=== PATIENT | male | born 1970 | race African-American/Black ===

== ENCOUNTER 2017-09-26 11:10 | Emergency (ER) | payer SELFPAY | END 2017-09-26 13:53 | disposition home or self-care (01) | LOC: ERS 11:10 | DX: M79.642 Pain in left hand (principal); M79.641 Pain in right hand; J45.909 Unspecified asthma, uncomplicated; Z87.891 Personal history of nicotine dependence | CPT/HCPCS: 99283 ==

== ENCOUNTER 2017-12-20 11:26 | Emergency (ER) | payer SELFPAY ==
--- NOTE | 2017-12-20 12:27 | RAD ---
RADIOGRAPH RIGHT SHOULDER 3 VIEWS: Date: 12/20/17 Time: 1148 hours HISTORY: 47-year-old male with right shoulder pain, but no trauma. COMPARISON: 04/06/15. FINDINGS: Again demonstrated is irregularity and mild bony hypertrophy of the AC joint. Lucency at the distal t ip of the clavicle appears somewhat greater on the current study compared to prior, but that could be due to technical differences rather than representing erosions. There is no acute fracture. There ar e multiple small subchondral cysts, and mild bony hypertrophy, at the inferior aspect of the glenohum eral joint. No destructive osseous lesion identified. IMPRESSION: mild to moderate osteoarthrosis of the glenohumeral joint, and moderate arthrosis of the acromioclavi cular joint. POS: [facility]
[2017-12-20] MEDS ORDERED: Sterile Water 10 ML ONE (12:31)
[2017-12-20] MEDS ORDERED: methylPREDNISolone Sod Succ/PF 125 MG/2 ML VIAL ONE (12:31)
== END 2017-12-20 12:59 | disposition home or self-care (01) ==
LOC: ERS 11:26
DX: M25.511 Pain in right shoulder (principal); J45.909 Unspecified asthma, uncomplicated; Z87.891 Personal history of nicotine dependence
CPT/HCPCS: 96372; A4216; J2930

== ENCOUNTER 2018-01-15 08:18 | Emergency (ER) | payer SELFPAY ==
--- NOTE | 2018-01-15 09:17 | RAD ---
LEFT ANKLE THREE VIEWS: History: Left ankle pain. FINDINGS: There is 0.3 cm distraction and minimal lateral displacement of the distal fragment of a transverse m edial malleolar fragment that shows well corticated margins. Tiny adjacent ossific fragment lies imme diately lateral to the main fracture plane. Moderate osteophytosis and mild joint space narrowing. Ta lar dome is intact. Small area of dystrophic calcification over the distal Achilles tendon. IMPRESSION: 1. 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 2. Osteoarthritic changes, somewhat pronounced for the patient's age. POS: [facility]
--- NOTE | 2018-01-15 09:20 | RAD ---
FIVE VIEWS LEFT KNEE: Date: 01-15-18 History: Twisting injury to left knee while playing sports one day ago. Left knee pain. FINDINGS: There is mild tricompartment osteophytosis. No fracture or dislocation is seen. No significant joint space narrowing is present. There is evidence of a small joint effusion in the suprapatellar location . No other findings. IMPRESSION: Osteoarthritis involving the patellofemoral joint. There is a lucency within the inferior aspect of t he femoral condyles on the lateral projection which may be related to subchondral cystic change. Oste ochondral defect cannot be entirely excluded. There is also evidence of a joint effusion. MRI left kn ee is suggested for further evaluation. POS: [facility]
[2018-01-15] MEDS ORDERED: Ketorolac Tromethamine 60 MG/2 ML VIAL ONE (09:48)
[2018-01-15] MEDS ORDERED: Acetaminophen/Codeine 30-300mg Tablet ONE (09:48)
== END 2018-01-15 10:08 | disposition home or self-care (01) ==
LOC: ERS 08:18
DX: M25.562 Pain in left knee (principal); M25.572 Pain in left ankle and joints of left foot; J45.909 Unspecified asthma, uncomplicated; Z87.891 Personal history of nicotine dependence
CPT/HCPCS: 96372; J1885

== ENCOUNTER 2018-02-22 14:25 | Emergency (ER) | payer SELFPAY ==
[2018-02-22] MEDS ORDERED: Dexamethasone 10 MG/ML VIAL ONE (14:47)
== END 2018-02-22 14:54 | disposition home or self-care (01) ==
LOC: ERS 14:25
DX: R21 Rash and other nonspecific skin eruption (principal); T39.315A Adverse effect of propionic acid derivatives, initial encounter; M25.562 Pain in left knee; J45.909 Unspecified asthma, uncomplicated; Z87.891 Personal history of nicotine dependence
CPT/HCPCS: 99282; J1100

== ENCOUNTER 2018-03-20 12:45 | Emergency (ER) | payer SELFPAY ==
[2018-03-20] MEDS ORDERED: Acetaminophen/Codeine 30-300mg Tablet ONE (13:20)
--- NOTE | 2018-03-20 13:57 | RAD ---
RIGHT SHOULDER THREE VIEWS: HISTORY: A 47-year-old male with a history of right shoulder pain. FINDINGS: There is some AC joint arthrosis with some minimal erosive or subchondral cystic changes of the later al clavicle. Mild degenerative changes of the glenohumeral joint. No acute fracture or dislocation. IMPRESSION: Stable arthrosis changes of the acromioclavicular joint and glenohumeral joint, unchanged from prior 12/20/2017 study. POS: J[facility]
== END 2018-03-20 14:01 | disposition home or self-care (01) ==
LOC: ERS 12:45
DX: M25.511 Pain in right shoulder (principal); J45.909 Unspecified asthma, uncomplicated; Z87.891 Personal history of nicotine dependence

== ENCOUNTER 2018-05-09 17:14 | Emergency (ER) | payer SELFPAY ==
[2018-05-09] MEDS ORDERED: Sodium Chloride 0.9% 100 ML ONE (18:11)
[2018-05-09] MEDS ORDERED: cefTRIAXone\\ROCEPHIN 1 GM VIAL ONE (18:11)
--- NOTE | 2018-05-09 18:19 | RAD ---
CHEST ONE VIEW: 05/09/18 HISTORY: Fever. COMPARISON: Chest radiograph 2009. FINDINGS: Lungs are clear. No pneumothorax or effusion. Cardiac silhouette and mediastinal contours are similar . Mild prominence of the pulmonary arteries. IMPRESSION: Similar examination chest. No acute intrathoracic abnormality. POS: [facility]
[2018-05-09 18:21] LABS: #Basophils 0.1 thou/uL (0.0-0.2); #Eosinphils 0.2 thou/uL (0.0-0.7); #Monocytes 0.9 thou/uL (0.11-0.59); #Neutrophils 4.7 thou/uL (1.40-6.50); %Basophils 0.7 % (0.0-1.0); %Eosinophils 3.1 % (0.0-10.0); %Lymphocytes 25.9 % (21.0-51.0); %Monocytes 10.9 % (0.0-10.0); %Neutrophils 59.5 % (42.0-75.0); Hemoglobin 12.5 g/dL (14.0-18.0); Mean Corpuscular HGB CONC 33.7 g/dL (32.0-36.0); Mean Corpuscular Hemoglobin 29.2 pg (27.0-31.0); Mean Corpuscular Volume 86.5 fL (78.0-98.0); Mean Platelet Volume 7.2 fL (7.4-10.4); Platelet Count 262 thou/uL (130-400); Red Blood Cell (RBC) Count 4.29 mill/uL (4.70-6.10); White Blood Cell (WBC) Count 7.9 thou/uL (4.8-10.8)
[2018-05-09] MEDS ORDERED: Acetaminophen 500 MG TAB ONE (18:25)
[2018-05-09 18:39] LABS: Anion Gap 11 mmol/L (10-20); BUN (Urea Nitrogen) 16 mg/dL (8.9-20.6); Calc. Creatinine Clearance 0 mL/min (70-130); Calcium 9.2 mg/dL (7.8-10.44); Carbon Dioxide 28 mmol/L (22-29); Chloride 106 mmol/L (98-107); Estimated GFR-MDRD 69; Glucose 114 mg/dL (70-105); Potassium 3.8 mmol/L (3.5-5.1); Sodium 141 mmol/L (136-145)
== END 2018-05-09 20:25 | disposition home or self-care (01) ==
LOC: ERS 17:14
DX: J02.9 Acute pharyngitis, unspecified (principal); J45.909 Unspecified asthma, uncomplicated; Z87.891 Personal history of nicotine dependence
CPT/HCPCS: 36415; 71045; 80048; 83605; 85025; 87040; 87081; 87430; 87804; 93005; 96365; 96366; J0696; J7050

== ENCOUNTER 2018-08-25 08:53 | Emergency (ER) | payer SELFPAY | END 2018-08-25 09:50 | disposition home or self-care (01) | LOC: ERS 08:53 | DX: M25.511 Pain in right shoulder (principal); G89.29 Other chronic pain; J45.909 Unspecified asthma, uncomplicated; Z87.891 Personal history of nicotine dependence | CPT/HCPCS: 99283 ==

== ENCOUNTER 2018-11-17 09:13 | Emergency (ER) | payer SELFPAY ==
[2018-11-17 10:33] LABS: #Basophils 0.1 thou/uL (0.0-0.2); #Eosinphils 0.3 thou/uL (0.0-0.7); #Lymphocytes 2.5 thou/uL (1.20-3.40); #Monocytes 0.6 thou/uL (0.11-0.59); #Neutrophils 2.6 thou/uL (1.40-6.50); %Basophils 1.2 % (0.0-1.0); %Eosinophils 5.4 % (0.0-10.0); %Monocytes 9.9 % (0.0-10.0); %Neutrophils 42.5 % (42.0-75.0); Hemoglobin 13.1 g/dL (14.0-18.0); Mean Corpuscular HGB CONC 32.5 g/dL (32.0-36.0); Mean Corpuscular Hemoglobin 27.9 pg (27.0-31.0); Mean Corpuscular Volume 85.9 fL (78.0-98.0); Mean Platelet Volume 6.9 fL (7.4-10.4); Platelet Count 295 thou/uL (130-400); RBC Distribution Width 13.2 % (11.5-14.5); White Blood Cell (WBC) Count 6.2 thou/uL (4.8-10.8)
[2018-11-17] MEDS ORDERED: HYDROcodone/Acetaminophen 5/325 mg Tablet ONE (10:42)
[2018-11-17 11:00] LABS: ALT (SGPT) 134 U/L (8-55); AST (SGOT) 71 U/L (5-34); Albumin 3.9 g/dL (3.5-5.0); Alkaline Phosphatase 103 U/L (40-150); Anion Gap 11 mmol/L (10-20); BUN (Urea Nitrogen) 16 mg/dL (8.9-20.6); Bilirubin, Total 1.1 mg/dL (0.2-1.2); Calc. Creatinine Clearance 0 mL/min (70-130); Calcium 9.4 mg/dL (7.8-10.44); Carbon Dioxide 29 mmol/L (22-29); Chloride 102 mmol/L (98-107); Estimated GFR-MDRD 84; Globulin 3.6 g/dL (2.4-3.5); Glucose 108 mg/dL (70-105); Potassium 3.8 mmol/L (3.5-5.1); Protein, Total 7.5 g/dL (6.0-8.3); Sodium 138 mmol/L (136-145)
[2018-11-17 11:12] LABS: Bilirubin Negative (Negative); Blood, Urine Large (Negative); Clarity CLEAR (Clear); Glucose, Urine (Dipstick) Negative (Negative); Leukocyte Negative (Negative); Nitrite Negative (Negative); Protein, Urine (Dipstick) Negative (Neg-Trace); Specific Gravity, Urine 1.023 (1.002-1.036); Urobilinogen 0.2 mg/dL (0.2-1.0)
[2018-11-17 11:15] LABS: Bacteria/HPF None Seen HPF (None Seen); Hyaline Casts/LPF 0-3 HYALINE CAST LPF (0-3 Hyaline); Squamous Epithelial None Seen HPF (0-3); WBC/HPF 0-3 HPF (0-3)
--- NOTE | 2018-11-17 11:59 | CT ---
HEAD CT IWTHOUT CONTRAST: DATE: 11/17/2018. COMPARISON: None. HISTORY: Headache, dizziness, weakness, and nausea. TECHNIQUE: Axial CT imaging at 5 mm intervals from vertex through the skull base without contrast. FINDINGS: The imaged paranasal sinuses and mastoid air cells are well aerated. No displaced calvarial fracture . No intracranial hemorrhage, midline shift, mass effect, or ventricular enlargement. IMPRESSION: No acute findings. POS: [facility]
== END 2018-11-17 11:58 | disposition home or self-care (01) ==
LOC: ERS 09:13
DX: R51 Headache (principal); M79.10 Myalgia, unspecified site; I10 Essential (primary) hypertension; J45.909 Unspecified asthma, uncomplicated; Z87.891 Personal history of nicotine dependence
CPT/HCPCS: 36415; 70450; 80053; 81003; 81015; 83880; 84484; 85025; 93005

== ENCOUNTER 2019-01-26 14:56 | Outpatient (CLI) | payer OTHER ==
--- NOTE | 2019-01-26 16:32 | MRI ---
MR OF THE LEFT KNEE WITHOUT CONTRAST INDICATION: Suspected medial meniscal tear and anterior left knee pain TECHNIQUE: Axial and coronal PD fat sat, sagittal T2 fat sat, sagittal PD turbo spin echo and T1 gricel nal images were obtained of the left knee. COMPARISON: Left knee radiograph dated January 15, 2018 FINDINGS: Joint effusion: Small Semimembranosus-medial gastrocnemius popliteal cyst: Small Ligaments: The ACL, PCL, MCL and LCLC are intact. Extensor mechanism: Intact. Menisci: There is a horizontally oriented oblique tear involving the posterior horn and posterior aurelia t of the medial meniscus. There is partial medial extrusion of the medial meniscus. The lateral meniscus appears intact. Articular cartilage: There is moderate chondrosis involving the medial femoral tibial joint compartme nt. There is moderate to severe chondrosis involving the patellofemoral compartment with a large area of full-thickness thinning involving the lateral patellar facet and lateral femoral trochlea. Th ere are marginal osteophytes affecting the major compartments of the left knee. There is mild diffuse chondrosis involving the lateral femoral tibial compartment. Focal full-thickness articular c artilage fissuring is suspected involving the medial aspect of the posterior lateral tibial plateau on image 22 of series 7. Osseous structures: Mild reactive edema is seen underlying areas of cartilage defects involving the l ateral patella, lateral femoral trochlea and lateral tibial plateau. Popliteus and IT band: Normal. IMPRESSION: 1. Mild to moderate osteoarthrosis involving the left knee, most severely affecting the patellofemora l compartment. 2. Medial meniscal tear
== END 2019-01-26 14:57 | disposition home or self-care (01) ==
LOC: BICMRI 14:56
PROVIDERS: ATTEND Orthopaedic Surgery
DX: M76.52 Patellar tendinitis, left knee (principal); S83.242A Other tear of medial meniscus, current injury, left knee, initial encounter; M17.12 Unilateral primary osteoarthritis, left knee

== ENCOUNTER 2024-08-11 07:06 | Emergency (ER) | payer OTHER, SELFPAY ==
[2024-08-11] MEDS ORDERED: Ketorolac Tromethamine 30 MG (1 mL) VIAL ONE (07:59)
== END 2024-08-11 08:57 | disposition home or self-care (01) ==
LOC: ERS 07:06
DX: M54.50 Low back pain, unspecified (principal); I10 Essential (primary) hypertension; F17.210 Nicotine dependence, cigarettes, uncomplicated
CPT/HCPCS: 72072; 72100; 96372; 99283; J1885

== ENCOUNTER 2025-08-04 09:21 | Emergency (ER) | payer SELFPAY | END 2025-08-04 09:55 | disposition home or self-care (01) | LOC: ERS 09:21 | DX: B35.3 Tinea pedis (principal); I10 Essential (primary) hypertension; F17.210 Nicotine dependence, cigarettes, uncomplicated | CPT/HCPCS: 99282 ==